=== PATIENT | male | born 1980 | race Caucasian/White ===

== ENCOUNTER 2022-03-17 19:29 | Inpatient (IN) | payer OTHER ==
[~2022-03-17] VITALS: Ht 175.3 cm; Wt 70.3 kg
--- NOTE | 2022-03-17 19:30 | NUR ---
BB RA AND [employer] FOR BIZARRE BEHAVIOR. PLACED COMFORTABLY IN BED. VITALS CHECKED.
[2022-03-17] MEDS ORDERED: LORAZEPAM INJ 2 MG/ML VIAL ONE (20:37)
[2022-03-17] MEDS ORDERED: LORAZEPAM INJ 2 MG/ML VIAL IM ONE (21:00)
[2022-03-17 21:02] LABS: BASOPHILS % (AUTO) 0.3 % (0.0-2.0); EOSINOPHILS % (AUTO) 0.4 % (0.0-6.0); HEMATOCRIT 45 % (39-51); HEMOGLOBIN 15.1 g/dL (13.5-17.5); LYMPHOCYTES # (AUTO) 0.8 K/uL (0.8-4.8); LYMPHOCYTES % (AUTO) 7.3 % (20.0-44.0); MEAN CORPUSCULAR HGB CONC 34 g/dl (31.0-36.0); MEAN CORPUSCULAR VOLUME 96 fL (80-96); MONOCYTES # (AUTO) 0.8 K/uL (0.1-1.30); MONOCYTES % (AUTO) 7.3 % (2.0-12.0); NEUTROPHILS # (AUTO) 8.8 K/uL (1.8-8.9); NEUTROPHILS % (AUTO) 84.7 % (43.0-81.0); PLATELET COUNT (AUTO) 309 K/uL (150-450); RED BLOOD CELL COUNT(AUTO) 4.67 MIL/uL (4.5-6.0); WHITE BLOOD COUNT (AUTO) 10.3 K/uL (4.3-11.0)
[2022-03-17 21:21] LABS: ALANINE AMINOTRANSFERASE 92 U/L (12-78); ALBUMIN 4.6 g/dL (3.4-5.0); ALKALINE PHOSPHATASE 87 U/L (46-116); ASPARTATE AMINOTRANSFERASE 73 U/L (15-37); BILIRUBIN,DIRECT 0.1 mg/dL (0.0-0.2); BILIRUBIN,TOTAL 0.6 mg/dL (0.2-1.0); CALCIUM, SERUM 10.2 mg/dL (8.5-10.1); CARBON DIOXIDE 28 mmol/L (21-32); CHLORIDE 118 mmol/L (98-107); CREATININE 1.3 mg/dL (0.6-1.3); GLUCOSE 127 mg/dL (74-106); POTASSIUM 3.7 mmol/L (3.5-5.1); TOTAL PROTEIN, SERUM 8.4 g/dL (6.4-8.2); UREA NITROGEN, BLOOD 30 mg/dL (7-18)
[2022-03-17 21:26] LABS: ACETAMINOPHEN < 10 ug/ml (10-30); ALCOHOL, BLOOD < 3 mg/dL (0-0); SODIUM SERUM 158 mmol/L (136-145)
--- NOTE | 2022-03-17 21:36 | NUR ---
URINE COLLECTED AND SENT TO LAB.
[2022-03-17] MEDS ORDERED: IV NS 0.9% 1,000 ML BAG IV ONE (22:00)
--- NOTE | 2022-03-17 22:06 | NUR ---
COVID SWAB DONE AND SENT TO LAB
--- NOTE | 2022-03-17 22:15 | NUR ---
MEDICAL RESTRAINT MONITORING STARTED.
[2022-03-17 22:19] LABS: BILIRUBIN,URINE SMALL (NEGATIVE); COLOR,URINE YELLOW (YELLOW); LEUKOCYTE ESTERASE ,URINE NEGATIVE (NEGATIVE); NITRITE, URINE NEGATIVE (NEGATIVE); PH,URINE 6.5 (5.0-8.0); PROTEIN,URINE 30 mg/dl (NEGATIVE); UGLUCOSE NEGATIVE (NEGATIVE); UROBILINOGEN,URINE 0.2 EU/dL (0.2)
[2022-03-17] MEDS ORDERED: ZOLPIDEM TARTRATE 5 MG TABLET PO PRN (22:30)
[2022-03-17] MEDS ORDERED: Z GUARD REMEDY 4 OZ OINT TP PRN (22:30)
[2022-03-17] MEDS ORDERED: MAGNESIUM HYDROXIDE 30 ML UDC PO PRN (22:30)
[2022-03-17] MEDS ORDERED: MAG HYDROX/AL HYDROX/SIMETH 30 ML UDC PO PRN (22:30)
[2022-03-17] MEDS ORDERED: ONDANSETRON HCL/PF 4 MG/2 ML VIAL IVP PRN (22:30)
[2022-03-17] MEDS ORDERED: ACETAMINOPHEN 325 MG TABLET PO PRN (22:30)
[2022-03-17] MEDS ORDERED: IV D5/0.45 NACL 1,000 ML IV PRN (22:30)
[2022-03-18] MEDS ORDERED: LORAZEPAM INJ 2 MG/ML VIAL ONE ×2 (03:43→10:39)
[2022-03-18] MEDS: LORAZEPAM INJ 2 MG/ML VIAL IV PRN ×2 (03:51→10:50)
[2022-03-18 05:41] LABS: BASOPHILS % (AUTO) 0.3 % (0.0-2.0); EOSINOPHILS % (AUTO) 0.3 % (0.0-6.0); HEMATOCRIT 43 % (39-51); HEMOGLOBIN 14.4 g/dL (13.5-17.5); LYMPHOCYTES # (AUTO) 1.3 K/uL (0.8-4.8); LYMPHOCYTES % (AUTO) 14.1 % (20.0-44.0); MEAN CORPUSCULAR HGB CONC 33 g/dl (31.0-36.0); MEAN CORPUSCULAR VOLUME 97 fL (80-96); MONOCYTES # (AUTO) 0.9 K/uL (0.1-1.30); MONOCYTES % (AUTO) 9.7 % (2.0-12.0); NEUTROPHILS # (AUTO) 6.9 K/uL (1.8-8.9); NEUTROPHILS % (AUTO) 75.6 % (43.0-81.0); PLATELET COUNT (AUTO) 273 K/uL (150-450); RED BLOOD CELL COUNT(AUTO) 4.47 MIL/uL (4.5-6.0); WHITE BLOOD COUNT (AUTO) 9.1 K/uL (4.3-11.0)
[2022-03-18 05:58] LABS: CALCIUM, SERUM 9.4 mg/dL (8.5-10.1); CREATININE 1.1 mg/dL (0.6-1.3); MAGNESIUM 2.7 mg/dL (1.8-2.4); PHOSPHORUS 3.6 mg/dL (2.5-4.9)
[2022-03-18 06:02] LABS: POTASSIUM 3.9 mmol/L (3.5-5.1)
[2022-03-18] MEDS ORDERED: IV D5W 1,000 ML IV PRN (06:30)
--- NOTE | 2022-03-18 07:25 | NUR ---
RESTRAINS CHANGED FROM NYLON/VELCRO TO SOFT. PER ASSESSMENT THE PATIENT STILL NEEDS RESTRAINTS. DR TAN AWARE. NO SITTER AT THIS TIME.
--- NOTE | 2022-03-18 09:42 | NUR ---
NO SITTER YET. THE PATIENT REMAINS ON MEDICAL RESTRAINTS PER ASSESSMENT AND ORDER.
[2022-03-18 10:30] VITALS: BP 132/67
[2022-03-18 11:12] LABS: BACTERIA,URINE Few /HPF (None Seen); SPERM,URINE Present /HPF (None Seen); SQUAMOUS EPITHELIAL CELL,UR Few /HPF (None Seen); WBC,URINE 0-2 /HPF (0-3)
--- NOTE | 2022-03-18 11:23 | NUR ---
REPORT GIVEN TO ROSELINE GAN FOR ANDRES
--- NOTE | 2022-03-18 11:25 | NUR ---
NO SITTER YET. THE PATIENT REMAINS ON MEDICAL RESTRAINTS PER ASSESSMENT AND ORDER.
--- NOTE | 2022-03-18 11:35 | NUR ---
ASSESSMENT DONE AND PER ASSESSMENT NO NEEDS FOR MEDICAL RESTRAINS. DR MARSHALL MADE AWARE AND THE RESTRAINS ARE DISCONTINUED. SITTER AT THE BEDSIDE.
--- NOTE | 2022-03-18 11:45 | NUR ---
THE PATIENT IS TRANSFERED TO ROOM 109 IN STABLE CONDITION AND PER POLICY.
--- NOTE | 2022-03-18 11:45 | NUR ---
RN NOTES ADMITTED A MALE PT FROM ER ON RA WITH O2 SAT AT 99%. A/O x3. ON SINUS RYTHM. PT ABLE TO AMBULATE WITH NO DIFFICULTY. LAC G18 INTACT. WITH SITTER.
--- NOTE | 2022-03-18 12:41 | NUR ---
patient calm and wanted to leave hospital verbalized 'i need to get my back pack ',verbalized it is in [place],alert oriente x4 knows his name,date and current president,deneis any suicidal ideation.josef betts notified pt. signed AMa. Gary gan sup notified.iv removed.
--- NOTE | 2022-03-18 12:45 | NUR ---
bus pass provided,zuleima AMA FORM and homeless waiver.
--- NOTE | 2022-03-20 09:26 | NUR ---
SS consult requested over the weekend. However, Pt. has already departed.
== END 2022-03-18 12:51 | disposition left against medical advice (07) | DRG 422 ==
LOC: ER 19:38 → TRANSITION 03-18 04:03 → TELE1 03-18 11:24 → MEDSG1 03-18 11:42
PROVIDERS: ADMIT Nurse Practitioner Acute Care; ATTEND Student in an Organized Health Care Education/Training Program
DX: E86.0 Dehydration (principal); E86.1 Hypovolemia; G92.9 Unspecified toxic encephalopathy; F29 Unspecified psychosis not due to a substance or known physiological condition; E87.0 Hyperosmolality and hypernatremia; Z20.822 Contact with and (suspected) exposure to COVID-19; F15.10 Other stimulant abuse, uncomplicated; R74.01 Elevation of levels of liver transaminase levels; Z53.29 Procedure and treatment not carried out because of patient's decision for other reasons; R79.89 Other specified abnormal findings of blood chemistry
CPT/HCPCS: 36415; 80048-TC; 80076-TC; 81001; 82962-TC; 83735-TC; 84100-TC; 85025-TC; 87081-TC; C9803; G0378; G0480; J2060; J3490; J7030; J7070